=== PATIENT | male | born 1970 | race Caucasian/White ===

== ENCOUNTER 2017-12-13 03:59 | Emergency (ER) | payer OTHER ==
[~2017-12-13] VITALS: Ht 182.9 cm; Wt 80.5 kg
[~2017-12-13 03:59] MED LIST: CEPHALEXIN500 M1 PO; DOXYCYCLINE 10100 MG PO; NO HOME MEDICATIONS
[2017-12-13 04:06] VITALS: PULSE 81; TEMP 97.3
[2017-12-13] MEDS ORDERED: AMOXICILLIN 8751 TAB PO (04:34)
== END 2017-12-13 05:00 | disposition home or self-care (01) ==
LOC: COL.ER 03:59
DX: B99.9 Unspecified infectious disease (principal); H10.89 Other conjunctivitis; F17.210 Nicotine dependence, cigarettes, uncomplicated